=== PATIENT | female | born 1970 | race Two or more races ===

== ENCOUNTER 2016-05-29 11:06 | Emergency (ER) | payer MEDICAID, OTHER ==
--- NOTE | 2016-05-29 11:42 | ED Physician Chart ---
Chief Complaint/HPI - Patient Information Date Seen:: 05/29/16 Time Seen:: 11:16 Chief Complaint:: Diffuse pruritic rash since last evening. History of Present Illness:: As above. No fever. No dyspnea or lightheadedness. Pt does not recall any unusual food or liquid ingestion. No use of new medication, cosmetic products, or contact with any unusual plants, animals, chemicals or environmental allergens, etc. Pt took Benadryl earlier this morning with improvement of her skin condition. Allergies:: Allergies Allergy/AdvReac Type Severity Reaction Status Date / Time No Known Allergies Allergy Verified 11/24/15 13:30 Vitals:: Vital Signs - 8 hr 05/29/16 11:26 Temp 97.6 F HR 95 RR 18 BP 115/72 O2 Sat % 96 Historian:: Patient Family MD/PCP:: unknown LMP:: Now Review:: Nurse's Note Reviewed Review of Systems - Review of Systems General/Constitutional: No fever, No chills, No weight loss, No weakness, No diaphoresis, No edema, No loss of appetite Skin: Rash Head: No headache, No light-headedness Eyes: No loss of vision, No pain, No diplopia ENT: No earache, No nasal drainage, No sore throat, No tinnitus Neck: No neck pain, No swelling, No thyromegaly, No stiffness, No mass noted Cardio Vascular: No chest pain, No palpitations, No PND, No orthopnea, No edema Pulmonary: No SOB, No cough, No sputum, No wheezing GI: No nausea, No vomiting, No diarrhea, No pain, No melena, No hematochezia, No constipation, No hematemesis G/U: No dysuria, No frequency, No hematuria Musculoskeletal: No bone or joint pain, No back pain, No muscle pain Endocrine: No polyuria, No polydipsia Psychiatric: No prior psych history Hematopoietic: No bruising, No lymphadenopathy Allergic/Immuno: No urticaria, No angioedema Neurological: No syncope, No focal symptoms, No weakness, No paresthesia, No headache, No seizure, No dizziness, No confusion, No vertigo Past Medical History - Past Medical History Past Medical History: No significant medical hx Family History: None Social History: Non Smoker, No Alcohol, No Drug Use, , Employed, Other ( lives with her children.) Employment:: House keeping. Surgical History: None Psychiatricy History: None Medication: Reviewed Family Medical History - Family Member Mother History Unknown: Yes Living Status: Still Living Other Medical History: no med. prob. Physical Exam - Physical Examination General/Constitutional: Awake, Well-developed, well-nourished, Alert, No distress, GCS 15, Non-toxic appearing, Ambulatory Other Gen/Cons comments:: Breathes comfortably, speaks clearly, and ambulates without assistance without difficulty. Head: Atraumatic Eyes: Lids, conjuctiva normal, PERRL, EOMI Skin: No ecchymosis, Well hydrated, No lymphadenopathy Other Skin comments:: Mild faint sparingly distributed erythematous rash in torso and all 4 extremities. No swelling or open wounds. ENMT: External ears, nose nl, Nasal exam nl, Lips, teeth, gums nl, Oropharynx nl , Tonsils nl Neck: Nontender, Full ROM w/o pain, No nuchal rigidity, No stridor Respiratory: Nl effort/Exclusion, Clear to Auscultation, No Wheeze/Rhonchi/Rales Cardio Vascular: RRR, No murmur, gallop, rubs, NL S1 S2 GI: No tenderness/rebounding/guarding, No organomegaly, No hernia, Normal BS's, Nondistended, No mass/bruits, No McBurney tenderness Other GI comments:: Abdomen is soft. Extremities: No tenderness or effusion, Full ROM, normal strength in all extremities, No edema, Normal digits & nails Neuro/Psych: Alert/oriented (oriented x 3.), Judgement/insight normal, Mood normal, Normal gait, No focal deficits ED Septic Shock - . Is Septic Shock (SBP<90, OR Lactate>4 mmol\L) present?: No - <6hrs of presentation: Vital Signs: Vital Signs - 8 hr 05/29/16 11:26 Temp 97.6 F HR 95 RR 18 BP 115/72 O2 Sat % 96 Reassessment (Disposition) - Reassessment Reassessment:: 1150 Pt remains stable. Pt requests to go home now. Aftercare instructions given. Reassessment Condition:: Improved - Diagnosis Diagnosis:: Probable allergic reaction, stable and improved. - Aftercare/Follow up Instructions Aftercare/Follow-Up Instructions:: Refer to Discharge Instructions Notes:: Bedrest. Avoid contact of any potential allergen. May take Benadryl 50 mg po q6h as directed. Drowsiness precautions given with the use of Benadryl. F/U with Dr. De León or PCP of pt's choice in one day for recheck. Return to ER immediately if condition worsens or if any further questions/problems. Medication Prescribed:: None - Patient Disposition Discharge/Transfer:: Home Time:: 11:55 Condition at Disposition:: Stable, Improved
== END 2016-05-29 12:05 | disposition home or self-care (01) ==
LOC: ER 11:06
DX: L29.8 Other pruritus (principal)
CPT/HCPCS: Z7502